=== PATIENT | female | born 1995 | race Caucasian/White ===

== ENCOUNTER 2022-07-04 01:50 | Inpatient (IN) | payer BC, OTHER ==
[2022-07-04] MEDS ORDERED: Acetaminophen 325 MG TAB PO SCH (02:45)
[2022-07-04] MEDS: Morphine 4 MG/ML VIAL IM SCH ×2 (04:18→04:56)
[2022-07-04] MEDS ORDERED: Morphine 4 MG/ML VIAL ONE (04:55)
[2022-07-04] MEDS ORDERED: Bupivacaine/Epinephrine 0.25% 30 ML VIAL ONE (08:00)
[2022-07-04] MEDS ORDERED: Diphenoxylate HCl/Atropine Tablet PO PRN (17:20)
[2022-07-04] MEDS ORDERED: Lidocaine 1% (PF) 30 ML VIAL SC PRN (17:20)
[2022-07-04] MEDS ORDERED: Misoprostol 200 MCG TAB PR PRN (17:20)
[2022-07-04] MEDS ORDERED: hydrALAZINE 20 MG/ML VIAL SLOW IVP PRN (17:20)
[2022-07-04] MEDS ORDERED: Acetaminophen 500 MG TAB PO PRN (17:20)
[2022-07-04] MEDS ORDERED: Butorphanol Tartrate 1 MG/ML VIAL SLOW IVP PRN (17:20)
[2022-07-04] MEDS ORDERED: Carboprost 250 MCG/ML AMP IM PRN (17:20)
[2022-07-04] MEDS ORDERED: Ondansetron PF 4 MG/2 ML Vial IVP PRN ×2 (17:20→20:02)
[2022-07-04] MEDS ORDERED: Promethazine HCl 25 MG/ML VIAL IM PRN ×2 (17:20→20:02)
[2022-07-04] MEDS ORDERED: Methylergonovine 0.2 MG/ML VIAL IM PRN (17:20)
[2022-07-04] MEDS ORDERED: NS w/ Oxytocin 30 units 500 ML IV SCH ×2 (17:30)
[2022-07-04 17:48] LABS: Hemoglobin 12.6 g/dL (12.0-15.5); Mean Corpuscular HGB CONC 35.8 g/dL (32.0-36.0); Mean Corpuscular Hemoglobin 31.1 pg (27.0-33.0); Mean Corpuscular Volume 86.9 fl (81.6-98.3); Mean Platelet Volume 11.9 fl (7.4-10.4); Platelet Count 178 10x3/uL (150-450); RBC Distribution Width 12.3 % (11.5-14.5); Red Blood Cell (RBC) Count 4.05 10x6/uL (3.90-5.03); White Blood Cell (WBC) Count 15.4 10x3/uL (3.5-10.5)
[2022-07-04 18:08] VITALS: BMI 27.9
[2022-07-04] MEDS ORDERED: Fentanyl 2 mcg/Bup 0.1% Cadd 100 ML ONE (18:10)
[2022-07-04 18:11] LABS: SARS-CoV-2 NAA Rapid Test Not Detected (NotDetected)
[2022-07-04 18:16] LABS: HBSAg Index 0.14 S/CO (0-0.99); Hep B Surf Ag Non-Reactive S/CO (NonReactive)
[2022-07-04 18:17] LABS: Syphilis Antibody Nonreactive (Nonreactive); Syphilis Antibody Index 0.04 S/CO (<1.00 Non-Reactive)
[2022-07-04] MEDS ORDERED: Fentanyl 100 MCG/2 ML VIAL ONE (19:02)
[2022-07-04] MEDS: Lactated Ringer's 1,000 ML IV SCH ×3 (19:45→22:40)
[2022-07-04] MEDS ORDERED: Moisturizing Cream (Eucerin) 113 GM JAR TOP PRN (20:02)
[2022-07-04] MEDS ORDERED: Acetaminophen 325 MG TAB PO PRN (20:02)
[2022-07-04] MEDS ORDERED: Lactated Ringer's 500 ML IV PRN (20:02)
[2022-07-04] MEDS ORDERED: Naloxone HCl 0.4 mg/ml Vial IVP PRN ×2 (20:02)
[2022-07-04] MEDS ORDERED: diphenhydrAMINE 50 MG/ML VIAL IVP PRN (20:02)
[2022-07-04] MEDS ORDERED: ePHEDrine Sulfate 50 MG/10 ML VIAL SLOW IVP PRN (20:02)
[2022-07-04] MEDS ORDERED: Fentanyl 2 mcg/Bupivacaine 0.1% Cassette 100 ML EPIDURAL SCH (20:15)
[2022-07-04] MEDS ORDERED: Communication Order-Pharmacy FS SCH (20:15)
[2022-07-05] MEDS ORDERED: Benzocaine-Menthol 82.5 ML CAN TOP PRN (02:57)
[2022-07-05] MEDS ORDERED: Boostrix 0.5 ML (Tdap) VIAL (>/=7 yrs of age) IM ONE (02:57)
[2022-07-05] MEDS ORDERED: Milk Of Magnesia 30 ML UDCUP PO PRN (02:57)
[2022-07-05] MEDS ORDERED: hydrALAZINE 20 MG/ML VIAL SLOW IVP PRN (02:57)
[2022-07-05] MEDS ORDERED: Preparation H Ointment 28 GM TUBE PR PRN (02:57)
[2022-07-05] MEDS ORDERED: diphenhydrAMINE 25 MG CAP PO PRN (02:57)
[2022-07-05] MEDS: Lactated Ringer's 1,000 ML IV SCH (02:57)
[2022-07-05] MEDS ORDERED: Lanolin Ointment 7 GM TUBE TOP PRN (02:57)
[2022-07-05] MEDS ORDERED: Bisacodyl 10 MG SUPP PR PRN (02:57)
[2022-07-05] MEDS ORDERED: HYDROcodone/Acetaminophen 5/325 mg Tablet PO PRN (02:57)
[2022-07-05] MEDS ORDERED: Ondansetron PF 4 MG/2 ML Vial IVP PRN (02:57)
[2022-07-05] MEDS: Ibuprofen 800 MG TAB PO SCH ×3 (04:39→21:19)
[2022-07-05] MEDS: Ferrous Sulfate 325 MG TAB PO SCH ×2 (07:56→16:48)
[2022-07-05] MEDS: Docusate 100 MG CAP PO SCH ×2 (08:54→21:19)
[2022-07-05] MEDS: Prenatal Vitamin 1 TAB PO SCH (08:54)
[2022-07-05] MEDS: HYDROcodone/Acetaminophen 5/325 mg Tablet PO PRN ×3 (12:26→22:37)
[2022-07-06] MEDS: Ibuprofen 800 MG TAB PO SCH ×3 (05:12→21:21)
[2022-07-06] MEDS: Docusate 100 MG CAP PO SCH ×2 (11:08→21:21)
[2022-07-06] MEDS: HYDROcodone/Acetaminophen 5/325 mg Tablet PO PRN (11:08)
[2022-07-06] MEDS: Prenatal Vitamin 1 TAB PO SCH (11:09)
[2022-07-06] MEDS: Ferrous Sulfate 325 MG TAB PO SCH (13:55)
[2022-07-07] MEDS: Ferrous Sulfate 325 MG TAB PO SCH ×2 (05:38→08:26)
[2022-07-07] MEDS: Ibuprofen 800 MG TAB PO SCH (06:28)
[2022-07-07] MEDS: Prenatal Vitamin 1 TAB PO SCH (08:28)
[2022-07-07] MEDS: Docusate 100 MG CAP PO SCH (08:28)
[2022-07-07 09:33] VITALS: BP 115/64; TEMP 97.8
== END 2022-07-07 11:02 | disposition home or self-care (01) | DRG 807 ==
LOC: CSHLD/OP 01:50 → CSHLD 17:06 → CSHPP 07-05 04:23
PROVIDERS: ADMIT Student in an Organized Health Care Education/Training Program; ATTEND Student in an Organized Health Care Education/Training Program
PROC: 10E0XZZ Delivery of Products of Conception, External Approach (ICD-10-PCS; principal; 2022-07-05)
PROC: 10907ZC Drainage of Amniotic Fluid, Therapeutic from Products of Conception, Via Natural or Artificial Opening (ICD-10-PCS; 2022-07-05)
PROC: 0HQ9XZZ Repair Perineum Skin, External Approach (ICD-10-PCS; 2022-07-05)
DX: O99.344 Other mental disorders complicating childbirth (principal); Z37.0 Single live birth; F41.9 Anxiety disorder, unspecified; F32.A Depression, unspecified; Z79.899 Other long term (current) drug therapy; Z20.822 Contact with and (suspected) exposure to COVID-19; Z3A.38 38 weeks gestation of pregnancy; O70.0 First degree perineal laceration during delivery
CPT/HCPCS: 51702; 76819; 85027; 86780; 86850; 86900; 86901; 87340; 99284; 99285; J2270; J2405; J7120; U0002